=== PATIENT | male | born 1980 | race Caucasian/White ===

== ENCOUNTER 2019-07-22 00:15 | Emergency (ER) | payer MEDICAID ==
[~2019-07-22] VITALS: Ht 175.3 cm; Wt 68.0 kg
[2019-07-22 00:21] VITALS: BP_SYST 121
[2019-07-22] MEDS ORDERED: ACETAMINOPHEN 325 MG TABLET PO ONE (00:30)
[2019-07-22] MEDS ORDERED: IBUPROFEN 600 MG TABLET PO ONE (00:30)
[2019-07-22 06:34] VITALS: BP_SYST 119
== END 2019-07-22 06:34 | disposition home or self-care (01) ==
LOC: SED 00:15
DX: M72.2 Plantar fascial fibromatosis (principal); G89.29 Other chronic pain; M25.551 Pain in right hip; F17.200 Nicotine dependence, unspecified, uncomplicated; Z71.6 Tobacco abuse counseling; Z88.8 Allergy status to other drugs, medicaments and biological substances
CPT/HCPCS: 82962; 99283

== ENCOUNTER 2021-10-14 00:36 | Emergency (ER) | payer MEDICAID ==
[~2021-10-14] VITALS: Ht 175.3 cm; Wt 74.8 kg
--- NOTE | 2021-10-14 00:42 | NUR ---
Patient to ER bed TREVINO to gown for evaluation. Side rails up. Report given to CHELI TABARES.
[2021-10-14 00:44] VITALS: BP_SYST 134
--- NOTE | 2021-10-14 00:46 | NUR ---
Patient BIB by BLS. C/O ankle pain x 2 and half weeks, Headache x today. Per reported, patient had migraine headache today and bilateral ankle pain for 2 and half weeks. Hx Bipolar, Anxiety, Depression, Schizophrenia, Chronic foot pain. A/O,X4, bilateral ankle pain, headache, pain rate 3/10
== END 2021-10-14 01:05 | disposition left against medical advice (07) ==
LOC: SED 00:36
DX: M25.571 Pain in right ankle and joints of right foot (principal); M25.572 Pain in left ankle and joints of left foot; Z53.21 Procedure and treatment not carried out due to patient leaving prior to being seen by health care provider